=== PATIENT | male | born 1950 | race Caucasian/White ===

== ENCOUNTER → 2021-10-07 12:52 | Outpatient (CLI) | payer MEDICARE, SELFPAY ==
--- NOTE | 2021-10-07 | DI.US.S_ITS ---
PROCEDURE: US ABD AORTA ANEURYSM SCREEN INDICATIONS: AAA SCREENING TECHNIQUE: Real time scanning was performed of the aorta and iliac arteries, with image documentation. COMPARISON: None. FINDINGS: Aorta: Proximal aortic diameter measures 2.6 cm. Mid-aorta measures 2.5 cm. Distal aortic diameter is 1.9 cm. Iliac arteries: Right common iliac artery measures 1.4 cm. Left common iliac artery measures 1.4 cm. IMPRESSION: Negative for aneurysm. Dictated by: Paul Cook M.D. on 10/07/2021 at 12:48 Approved by: Paul Cook M.D. on 10/07/2021 at 12:48
--- NOTE | 2021-10-07 | DI.ECHO.S_ITS ---
[facility] +---------+ [facility] +---------+ : : [address] : [place] [address] : : : : [id number] : : : : Phone: [phone]+ Echocardiogram Report + + :Name: MIK MILLS Study Date: 10/07/2021 Height: 74 in : :[facility] ReadingLocation: Weight: 217 lb : : Gender: Male BSA: 2.2 m2 : :: 1950 Age: 71 yrs BP: 146/86 mmHg: :Reason For Study: Hypertension : :Ordering Physician: Christopher, : :Brigid Performed By: Davion Wagner : :Referring: Brigid White : + + Interpretation Summary The left ventricle is normal in size. There is mild-moderate concentric left ventricular hypertrophy. The ejection fraction is estimated to be 55-60%. The right ventricle is normal in size and function. No significant valvular pathology seen. The ascending aorta is mildly enlarged. The IVC is of normal diameter and collapses greater than 50% with a sniff. This suggests a low right atrial pressure of 3 mm Hg. Mild atherosclerotic plaque(s) in the aortic arch. Procedure: A two-dimensional transthoracic echocardiogram with color flow and Doppler was performed. The study quality was technically adequate. There is no prior echocardiogram noted for this patient. A contrast injection of Definity was performed to improve assessment of LV function. The patient was in normal sinus rhythm during the exam. Left Ventricle: The left ventricle is normal in size. There is mild-moderate concentric left ventricular hypertrophy. There is no thrombus. Left ventricular systolic function is normal. The ejection fraction is estimated to be 55-60%. There are no focal wall motion abnormalities. MV E/A: 0.71 Med Peak E' Sidney: 4.3 cm/sec E/E' med: 14.2. Right Ventricle: The right ventricle is normal in size and function. Atria: Both atria are normal in size. The interatrial septum grossly appears intact with no obvious evidence for an atrial septal defect. 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 Mitral Valve: There is mild mitral annular calcification. There is trace mitral regurgitation. Aortic Valve: The aortic valve is normal in structure and function. The aortic valve is trileaflet. There is no aortic valve stenosis. There is trace aortic regurgitation. Tricuspid Valve: The tricuspid valve is normal in structure and function. Pulmonary artery pressures cannot be estimated because of the lack of a measurable TR jet velocity. There is trace tricuspid regurgitation. Pulmonic Valve: The pulmonic valve is not well visualized. There is no pulmonic valvular regurgitation. Great Vessels: The aortic root is normal size. The ascending aorta is mildly enlarged. Mild atherosclerotic plaque(s) in the aortic arch. The IVC is of normal diameter and collapses greater than 50% with a sniff. This suggests a low right atrial pressure of 3 mm Hg. Pericardium/ Pleura There is no pericardial effusion. There is no pleural effusion. MMode/2D Measurements & Calculations LVIDd: 4.6 cm LVOT diam: 2.4 cm LVIDs: 3.0 cm Ao root diam: 4.0 cm FS: 35.2 % asc Aorta Diam: 4.0 cm IVSd: 1.4 cm LVPWd: 1.3 cm LV dominguez. diameter/BSA (cm/m^2): 2.1 LV sys. diameter/BSA (cm/m^2): 1.3 LA dimension: 2.7 cm RA long axis: 4.9 cm LA A2 area: 16.9 cm2 LA A4 area: 22.0 cm2 LA length (vol): 4.4 cm LA vol: 71.2 ml LA vol index: 31.7 ml/m2 TAPSE_phl: 3.3 cm Doppler Measurements & Calculations Ao V2 max: 140.0 cm/sec LVOT Max Sidney: 114.0 cm/sec Ao V2 mean: 96.0 cm/sec LV V1 max P.2 mmHg Ao max P.0 mmHg LV V1 VTI: 24.7 cm Ao mean P.0 mmHg BRIANA(I,D): 3.9 cm2 Ao V2 VTI: 27.7 cm BRIANA(V,D): 3.5 cm2 sev ratio: 0.89 BRIANA indexed to BSA (cm^2/m^2): 1.7 MV E max sidney: 60.2 cm/sec SV(LVOT): 107.1 ml MV A max sidney: 84.8 cm/sec MV E/A: 0.71 Med Peak E' Sidney: 4.3 cm/sec E/E' med: 14.2 Lat Peak E' Sidney: 7.4 cm/sec E/E' lat: 8.2 E/e' average: 11.2 MV dec time: 0.35 sec AV VR_phl: 0.81 MV P1/2t-pr_phl: 102.5 msec BRIANA(VTI)/BSA_phl: 1.6 Reading Physician:03:55 PM
== END ==
PROVIDERS: Referring Provider Nurse Practitioner Family; Visit Provider Nurse Practitioner Family
DX: Z13.6 Encounter for screening for cardiovascular disorders (principal); I10 Essential (primary) hypertension; Z87.891 Personal history of nicotine dependence; I51.7 Cardiomegaly; I70.0 Atherosclerosis of aorta
CPT/HCPCS: 76706; C8929; Q9957